=== PATIENT | male | born 1955 | race Caucasian/White ===

== ENCOUNTER 2022-02-16 10:59 | Outpatient (CLI) | payer BC | END 2022-02-16 11:00 | disposition home or self-care (01) | LOC: RAD 10:59 | PROVIDERS: ATTEND Family Medicine | DX: M54.50 Low back pain, unspecified (principal); G89.4 Chronic pain syndrome; R05.9 Cough, unspecified; R91.8 Other nonspecific abnormal finding of lung field; M43.17 Spondylolisthesis, lumbosacral region; M25.78 Osteophyte, vertebrae; M51.36 Other intervertebral disc degeneration, lumbar region; M51.37 Other intervertebral disc degeneration, lumbosacral region; Z98.1 Arthrodesis status | CPT/HCPCS: 71046; 72100 ==